=== PATIENT | female | born 1985 | race Caucasian/White ===

== ENCOUNTER 2016-07-16 16:58 | Emergency (ER) | payer OTHER ==
[~2016-07-16] VITALS: Ht 175.3 cm; Wt 125.9 kg
[~2016-07-16 16:58] MED LIST: ALBU8.5H2 INHALATION; CITA10TA14 PO; [UNRECOGNIZED DRUG - REMARK] PO
[2016-07-16 17:00] VITALS: BP 129/81; PULSE 82; RESP 16; O2SAT 97
[2016-07-16] MEDS: HYDROmorphone 0.5 mg/0.5 mL iSecure Syringe IVPUSH PRN ×4 (18:03→20:46)
[2016-07-16] MEDS: Ondansetron 2 mg/mL 2 mL Inj IVPUSH PRN ×2 (18:03→19:05)
--- NOTE | 2016-07-16 18:08 | ED.REPORT ---
HPI-NVD Date of Service Jul 16, 2016 ED Provider: Franky Felix MD Pt is a 31 year old female with a hx of gastric sleeve surgery in [place] on June 26 and thrush presenting to the ED complaining of 5 days of severe abdominal pain and cramping. Associated symptoms include nausea, vomiting, diarrhea, fever (99). Denies bloody stools. The pt reports that she had non painful diarrhea even before the gastric sleeve surgery. She also reports 2 weeks ago she had "pus filled bumps" on her throat. Reportedly, the pt accidentally made a meal with milk and the symptoms began shortly after eating it. The pt states that she has been sticking to clear liquids and 1 tablet every 4-6 hours of Imodium and Pepto Bismol without relief, and Tylenol with some relief. She last took Imodium 2 days ago and Pepto Bismol this morning. She denies any sick contacts. The pt was sent here from Urgent Care and had a CT scan done showing nonspecific colitis. Nursing Notes Stated Complaint: DIARRHEA Chief Complaint: Female Abdominal Pain Nursing Notes Reviewed: Yes (Organically Maid not reconciled) Allergies: Coded Allergies: No Known Allergies (Verified Allergy, Unknown, 09/12/15) Scheduled ([ control pills]) 1 TAB PO DAILY Ciprofloxacin (Cipro) 500 Mg Tablet 500 MG PO BID Citalopram-Expunged Drug, Do Not Renew! (Citalopram-Expunged Drug, Do Not Renew! ) 10 Mg Tablet 5 MG PO DAILY Metronidazole (Metronidazole) 500 Mg Tablet 500 MG PO TID Scheduled PRN Albuterol HFA (Proair HFA) 8.5 Gm Hfa.aer.ad 2-4 PUFFS INHALATION Q4H PRN PRN For Wheezing Ondansetron ODT (Ondansetron ODT) 8 Mg Tab.rapdis 8 MG PO Q4H PRN PRN For Nausea oxyCODONE-Acetaminophen 5-325 mg (oxyCODONE-Acetaminophen 5-325 mg) 1 Each Tablet 1-2 TAB PO Q6H PRN PRN For Pain oxyCODONE-Acetaminophen 5-325 mg (oxyCODONE-Acetaminophen 5-325 mg) 1 Each Tablet 1-2 TAB PO Q4-6H PRN PRN For Pain General Time Seen by : 18:05 Chief Complaint Abd pain, cramping Hx Obtained From: Patient, Spouse Arrived By: Walk-in Onset Occurred: 5 days ago Context of Onset: Possible food poisoning Symptom Duration: Since onset Quality: Cramping, Painful Severity: Current: Moderate Severity: Maximum: Severe Associated with: Reports: Abdominal pain, Fever (99), Denies: Blood in stool, Constipation, Hematemesis Recent Healthcare: Recent doctor visit, Previous surgery Similar Sx Previous: No Past Medical History Past Medical History Asthma Past Surgical History Gastric Sleeve surgery 06/26/16 in [place] Reports: Appendectomy Family History noncontributory Smoking History Never Smoker Social History Alcohol Use: "Social" Drug Use: THC Other Social History: Good social support, , Local resident Occupation works as a teacher Ambulatory Status Independent Review of Systems Constitutional: Reports: Fever (99) GI: Reports: Abdominal pain, Diarrhea, Nausea, Vomiting, Denies: Constipation, Melena Complete sys rev & neg: except as marked. Physical Exam Initial Vital Signs Vital Signs (First) Date Time Temp Pulse Resp B/P Pulse Ox O2 Delivery O2 Flow Rate FiO2 07/16/16 17:00 35.4 82 16 129/81 97 Room Air Initial VS: Reviewed, Vital signs normal Head / Eyes: Atraumatic, Normocephalic, PERRL ENT: Mucous membranes moist, Conjunctiva normal, No scleral icterus Respiratory: Breath sounds normal, Clear to auscultation, No respiratory distress Cardiovascular: Regular rate & rhythm, Heart sounds normal, Intact distal pulses Extremities: Vascular intact, Neuro intact, No swelling, No tenderness Skin: Warm, Dry, No cyanosis Neurologic: Alert, Oriented, Nonfocal Psychiatric: Mood/affect normal, Behavior normal, Normal thought content General/Constitutional: Awake, Alert, No acute distress Appears dehydrated. Abdomen: Soft, Non-tender Incision site nearly completely healed. No sign of infection or complication. Interpretation & Diagnostics Lab Results Interpretation Lab Results Interpretation: Was drawn from urgent care revealed white count 11.2, hemoglobin and hematocrit 12.6 and 36.8, platelet count of 329 Sodium was 139, potassium 3.2, chloride 101, CO2 23, when necessary 8 creatinine 0.7, calcium 8.8 3.6, glucose 99, AST 64, AST 19, alkaline phosphatase 141, alkaline phosphatase 153 Stool GI PCR panel was sent from the ED and is pending CT Abd / Pelvis Interpretation IMPRESSION: 1. Postsurgical changes compatible with gastric stapling procedure. 2. Circumferential wall thickening involving the colon compatible with nonspecific colitis. 3. No free fluid or air. By Radiologist Re-Eval/Medical Decision Med Decision/Clinical Course This is a 31-year-old female sent over from urgent care for abdominal pain, vomiting, diarrhea for the past week. Patient attributed symptoms to food poisoning, but has a complicated risk profile and that she underwent a gastric surgery with the sleeve placement in [place] June 26, she reports she did quite well from his had no problems until this past week. Denies fever, denies known exposures, has no other antibiotic exposure history and no additional complaints. Could not sleep last night secondary to abdominal cramping. She is afebrile and nontoxic in apartment, and has a benign clinical abdominal exam. Laboratory and CT were ordered from urgent care, and labs and resulted in reviewed and entered into this chart. Patient's lab does have a mild lipase elevation-with the patient has no clinical history features to suggest pancreatitis, and no radiologic findings of pancreatitis, and yet her CT and her history are consistent with colitis. The CT scan was interpreted as consistant with colitis, which fits the clinical presentation. She describes onset of symptoms with fever and chills, and a history and the laboratory findings were all indicative of likely infectious etiology. The patient does have risk profiles with travel history to [place] GI procedures where there is a risk for pathologic infection, and symptoms ongoing now for 6+ days. The patient was hydrated and clinically appears quite well. I have sent a PCR panel GI study, with results anticipated the next 24 hours. Given the patient's risk profile given the patient dose of Cipro and Flagyl here to cover multiple potential pathogens while waiting for the PCR panel-and advised patient to call tomorrow to see if the PCR panels resulted, to help determine if she needs to fill the prescriptions provided for continued course of 3 days of Cipro, and 10 days of Flagyl. She was also discharged with supportive measures include some ondansetron and when necessary oxycodone which she reports that work best for her. She is much improved on reevaluation and discharged ambulatory and in good condition. Source of Hx: Old records Re-Evaluation/Progress : Time of Eval: 20:25 Patient Status: Condition improved Re-Evaluation/Progress Note: Discussed plan for discharge. Pt understands and agrees with plan. All pt questions addressed. Differential Diagnosis: Negative: Appendicitis, Boerhaave syndrome, Bowel obstruction, Diabetic ketoacidosis, Drug toxicity, Mari-Monroy syndrome, Migraine headache, Pancreatitis, Ulcerative colitis, Urolithiasis Counseled Regarding: Diagnosis, Lab results, Need for follow-up, When/why to return to ED Discharge & Departure Impression: Primary Impression: Colitis Additional Impression: Dehydration Disposition: Home Discharge Condition All VS Reviewed: Yes Condition: Improved Additional Instructions: 1. Your CT scan confirms that your symptoms are from inflammation of the colon- condition: Colitis. 2. Your symptoms and presentation strongly suggest an infectious cause-and the next thing is waiting for the stool studies, which usually take 1-2 days for results. Call [phone] tomorrow around noon to see if results for the "GI PCR PANEL" are back. (They will determine if you need to continue antibiotics - so do not fill prescriptions until results return) 3. In this setting, empiric treatment with antibiotics until the cultures are resulted is reasonable. Take ciprofloxacin 500mg twice a day for 3 days and metronidazole 500mg three times a day for 10 days. NOTE: Do not drink any alcohol while taking the metronidazole. 4. Rest. 5. Drink small, frequent sips of fluids to maintain hydration. 6. IF needed for nausea take ondansetron 8mg (let dissolve under the tongue) up to every 4 hours 7. IF needed for abdominal cramps take oxycodone/APAP 5/325 1-2 tabs up to every 4-6 hours for pain/cramping. Note: This medication contains a narcotic and does cause drowsiness. No driving for at least 4-6 hours after taking. 8. Return if new, worsening, or uncontrolled symptoms occur. Referrals: Bartolome Kimbrough MD (PCP) Scribe Attestation Portions of this note were transcribed by Liliam Butler. I, Dr. Felix personally performed the history, physical exam and medical decision-making; I reviewed and confirmed the accuracy of the information in the transcribed note. Signed by: Gordon Webber, 07/16/16 and 2024. copies to: Bartolome Kimbrough MD, Matthew F MD Jul 16, 2016 18:08 LILIAM BUTLER Jul 16, 2016 18:19
[2016-07-16] MEDS ORDERED: 0.9% Sodium Chloride 1,000 ML IV ONE ×2 (18:10)
[2016-07-16] MEDS ORDERED: _oxyCODONE/APAP 5-325 mg Tablet PO PRN (18:35)
[2016-07-16] MEDS ORDERED: metroNIDAZOLE Inj 1,000 MG in IV Premix 1 EACH IV ONE (18:35)
[2016-07-16] MEDS ORDERED: _Ondansetron ODT 4 mg Tablet PO PRN (18:35)
[2016-07-16] MEDS ORDERED: ONDA8TAB10 PO (19:19)
[2016-07-16] MEDS ORDERED: CIPR-231 PO (19:19)
[2016-07-16] MEDS ORDERED: METR500T19 PO (19:19)
[2016-07-16] MEDS ORDERED: OXYC1TAB24 PO ×2 (19:19→20:13)
[2016-07-16 20:46] VITALS: BP 122/68; PULSE 76; RESP 16; O2SAT 98
== END 2016-07-16 20:47 | disposition home or self-care (01) ==
LOC: SED 16:58
DX: K52.9 Noninfective gastroenteritis and colitis, unspecified (principal); E86.0 Dehydration; R10.9 Unspecified abdominal pain; J45.909 Unspecified asthma, uncomplicated; Z98.890 Other specified postprocedural states
CPT/HCPCS: 87507; 96365; 96375; 96376; 99285; J1170; J2405; J3490; J7030